=== PATIENT | male | born 1980 | race Caucasian/White ===

== ENCOUNTER 2019-11-01 17:04 | Emergency (ER) | payer OTHER ==
[~2019-11-01] VITALS: Ht 175.3 cm; Wt 81.6 kg
[2019-11-01 17:22] VITALS: BP 156/99
[2019-11-01] MEDS ORDERED: TETANUS-DIPTH-ACEL PERTUSSIS 0.5ML SYR Tdap IM ONE (17:30)
[2019-11-01] MEDS ORDERED: IBUPROFEN 800 MG TAB PO ONE (17:30)
== END 2019-11-01 17:56 | disposition home or self-care (01) ==
LOC: ER 17:04
DX: S61.301A Unspecified open wound of left index finger with damage to nail, initial encounter (principal); F17.210 Nicotine dependence, cigarettes, uncomplicated; W26.0XXA Contact with knife, initial encounter; Y93.89 Activity, other specified; Y92.89 Other specified places as the place of occurrence of the external cause; Y99.8 Other external cause status
CPT/HCPCS: 90471; 90715

== ENCOUNTER 2024-11-19 11:33 | Emergency (ER) | payer MEDICAID, OTHER ==
[~2024-11-19] VITALS: Ht 175.3 cm; Wt 88.7 kg
[2024-11-19 12:48] VITALS: BP 123/84; PULSE 99; RESP 16; TEMP 98; O2SAT 97
--- NOTE | 2024-11-19 13:21 | ED.PDOC ---
Musculoskeletal HPI Comments A 44-year-old male with no past medical history presents to the emergency department with a chief complaint of RT hand pain s/p fall onset today (11/19/24) around 09:30. Patient states he went to the restroom at [employer], floor was wet, slipped, fell backwards, placed RT hand to break the fall. Shortly after patient began experiencing RT hand pain with swelling. No other symptoms or modifying factors present at this time. Denies fevers chills night sweats nausea vomiting redness around the hand Denies previous surgeries to the hand, arm or significant injury Numbness/tingling down the arm Denies changes, shortness of breath Denies head injury, LOC Chief Complaint: Upper Extremity Time Seen by MD: 13:05 Primary Care Provider: MERRYK Reviewed Notes: Nurses Notes, Medications, Allergies Allergies: Coded Allergies: NO KNOWN ALLERGIES (Unverified , 11/01/19) Home Meds Active Scripts Naproxen (Naproxen) 500 Mg Tab, 500 MG PO BIDPC for 10 Days, #20 TAB 0 Refills Prov:KISHORE WILKINS NP 11/19/24 Information Source: Patient, Spouse Mode of Arrival: Ambulatory Location: Right Extremity Location: Hand Timing: Hours Prehospital treatment: None Severity: Moderate Able to Move Extremity: Yes Bear Weight: Limited Pain: Moderate Hand Dominance: Right Mechanism: Spontaneous Circumstances: Fall Onset of Symptoms: After Trauma Symptoms: Swelling, Pain DVT Risk Factors: NONE Associated signs and symptoms: Hand pain Past Medical History PAST MEDICAL HISTORY: Denies Surgical History: Denies all surgeries Family History Family History: Reviewed,noncontributory to illness Social History Smoker: Cigarettes Alcohol: Denies ETOH Use Drugs: Denies Drug Use Lives In: Home All Other Systems: Reviewed and Negative (as per HPI) Physical Exam General Appearance: No Apparent Distress, Normal HEENT: Normal ENT Inspection, Pharynx Normal, TMs Normal Neck: Full Range of Motion, Non-Tender, Normal, Normal Inspection Respiratory: Chest Non-Tender, Lungs Clear, No Accessory Muscle Use, No Respiratory Distress, Normal Breath Sounds Cardiovascular: No Murmur, No Gallop, Regular Rate/Rhythm Breast Exam: Deferred Gastrointestinal: No Organomegaly, Non Tender, No Pulsatile Mass, Normal Bowel Sounds, Soft Genitalia: Deferred Pelvic: Deferred Rectal: Deferred Extremities: No calf tenderness, Normal capillary refill, No pedal edema Musculoskeletal : Location: Right Extremity Location: Hand (noticable swelling to RT hand with no open wounds, ecchymosis, erythema. Localized TTP to 2nd MCP. Able to flex/extend, neurovascu lar intact, radial pulses 2+) Apperance: Normal Neurologic: Alert, rn gynecology II-XII nml as Tested, No Motor Deficits, Normal Affect, Normal Mood, No Sensory Deficits Cerebellar Function: Normal Reflexes: Normal Skin: Dry, Normal Color, Warm Lymphatic: No Adenopathy Was a procedure done? Was a procedure done?: No Differential Diagnosis EXT Differential Diagnosis: Fracture, Sprain, Dislocation X-Ray, Labs, Meds, VS Vital Signs Date Time Temp Pulse Resp B/P (MAP) Pulse Ox O2 Delivery O2 Flow Rate FiO2 11/19/24 12:48 98.0 99 16 123/84 (97) 97 98.0 11/19/24 12:48 99 16 97 Room Air 11/19/24 11:50 98.0 99 16 123/84 (97) 97 98.0 Current Medications Medications (Trade) Dose Ordered Sig/Concepción Route Start Time Stop Time Status Last Admin Acetaminophen/ Hydrocodone Bitart ([place] 5/325MG Tab) 1 tab ONCE ONCE PO 11/19/24 13:30 11/19/24 13:31 DC 11/19/24 13:41 PATIENT: EFREN BOYLEACCT: [id number]: [id number] : 1980 LOC: ER ROOM / BED: / AGE / SEX: 44 / M ADM STATUS: REG ER SERVICE 1311 ORDERING PHYSICIAN: KISHORE WILKINS NP PROCEDURE(s): RHAN - R HAND 3 VIEW XRAY REASON: R/o fracture ORDER NUMBER(s): [id number], ACCESSION NUMBER(s): [id number] CLINICAL INDICATION: Trauma; R/o fracture TECHNIQUE: 3 radiographic views of the right hand were obtained. Comparison: None FINDINGS/IMPRESSION: Comminuted fracture of the right 2nd metacarpal head. ATED BY: SHANNON GAVIRIA MD DICTATED DATE/TIME: 11/19/24 1350 SIGNED BY: SHANNON GAVIRIA MD SIGNED DATE/TIME: 11/19/24 135 CC: X-Ray, Labs, Meds, VS Comment A 44-year-old male with no past medical history presents to the emergency department with a chief complaint of RT hand pain s/p fall onset today (11/19/24) around 09:30. Patient arrives alert and oriented, ABC's intact, afebrile, vital signs stable, saturating well in room air After ROS and physical examination, differentials considered but not limited to: sprain, dislocation, fracture Imaging ordered and results showed: Comminuted fracture of the right 2nd metacarpal head. Splint ordered. Neurovascular sensation intact on re-evaluation On reevaluation, patient had symptomatic improvement. Patient is stable for discharge at this time. External notes reviewed. Test results and diagnostic imaging interpreted. All diagnostic findings, discharge care, education and instructions provided Follow-up with PCP in 2 to 3 days Patient verbalized understanding and agreed to treatment plan Vital signs stable, afebrile, no acute distress noted Patient ambulatory with strong steady gait Advised to return precautions for any new or worsening symptoms, return to ER immediately for re-evaluation Patient is aware that the purpose of this visit was for an acute medical emerge ncy requiring emergent stabilization. Chronic conditions, including malignancies have not been ruled out. Patient is instructed to follow up with PCP as directed and discharge instructions for continued care and workup. If unable to arrange follow-up, patient is to return to the emergency department for reassessment. Patient (parent or legal guardian if applicable) was given verbal and written discharge instructions and acknowledges understanding. Additional MDM Review of External, Non-ED records: External records reviewed. Discussion with independent historian (EMS, family) history obtained from the patient/parents (if applicable) at bedside Chronic conditions affecting care: None Social determinants of health affecting care: cigarettes Consideration of admission (observation or admission): I considered escalation of care to admission for this patient, however given the reassuring workup, the patient is safe for outpatient management. Time of 1ST Reevaluation: 13:35 Reevaluation 1ST: Unchanged Patient Education/Counseling: Diagnosis, Treatment, Need For Follow Up Family Education/Counseling: Diagnosis, Treatment, Need For Follow Up Departure 1 Departure Time of Disposition: 14:07 Impression: Primary Impression: Finger fracture Qualified Codes: S62.640A - Nondisplaced fracture of proximal phalanx of r ight index finger, initial encounter for closed fracture Disposition: HOME / SELF CARE / HOMELESS Condition: Stable e-Prescriptions Naproxen (Naproxen) 500 Mg Tab 500 MG PO BIDPC for 10 Days, #20 TAB 0 Refills Prov: KISHORE WILKINS NP 11/19/24 Critical Care Note Critical Care Time?: No Stability Stability form required: No Heart Score Heart Score: Heart Score Response (Comments) Value History N/A 0 EKG N/A 0 Age N/A 0 Risk Factors N/A 0 Troponin N/A 0 Total 0 I personally scribed for KISHORE WILKINS NP ([email or web address]) on 11/19/24 at 13:21. Electronically submitted by Adri Castellano ([email or web address]). KISHORE WILKINS NP Nov 19, 2024 13:21
[2024-11-19] MEDS: HYDROcodone-ACET 5/325MG TAB PO ONE (13:41)
--- NOTE | 2024-11-19 13:52 | DVH ---
CLINICAL INDICATION: Trauma; R/o fracture TECHNIQUE: 3 radiographic views of the right hand were obtained. Comparison: None FINDINGS/IMPRESSION: Comminuted fracture of the right 2nd metacarpal head.
[2024-11-19] MEDS ORDERED: NAPR-746 PO (14:08)
== END 2024-11-19 14:19 | disposition home or self-care (01) ==
LOC: ER 11:33
DX: S62.640A Nondisplaced fracture of proximal phalanx of right index finger, initial encounter for closed fracture (principal); F17.210 Nicotine dependence, cigarettes, uncomplicated; W01.0XXA Fall on same level from slipping, tripping and stumbling without subsequent striking against object, initial encounter; Y93.89 Activity, other specified; Y92.89 Other specified places as the place of occurrence of the external cause; Y99.8 Other external cause status
CPT/HCPCS: 29125; 73130